=== PATIENT | male | born 1980 | race Caucasian/White ===

== ENCOUNTER 2017-01-27 10:15 | Emergency (ER) | payer BC, OTHER, SELFPAY ==
[2017-01-27] MEDS ORDERED: HYDROcodone/Acetaminophen 5/325 mg Tablet ONE (10:54)
== END 2017-01-27 11:07 | disposition home or self-care (01) ==
LOC: BURERS 10:15
DX: M54.12 Radiculopathy, cervical region (principal); I10 Essential (primary) hypertension; F41.9 Anxiety disorder, unspecified; F32.9 Major depressive disorder, single episode, unspecified

== ENCOUNTER 2017-07-15 11:24 | Outpatient (CLI) | payer OTHER ==
--- NOTE | 2017-07-15 19:13 | RAD ---
RIGHT HAND TWO VIEWS: 07/15/2017 FINDINGS: Old trauma and post surgical changes are noted to the distal phalanx of the fifth digit at the DIP gonzalez int. There is a chronic flexion deformity and rotation of the distal phalanx with respect to the mid dle. This is longstanding. With respect to the thumb, there is a tiny becca of bone just lateral to the first MCP joint and a small divot at the lateral aspect of the first metacarpal head. These fin dings appear more like an old injury than new. The remainder of the hand and wrist appear intact. IMPRESSION: Probable old injury to the radial aspect of the first metacarpal head. POS: HOME
== END 2017-07-15 11:25 | disposition home or self-care (01) ==
LOC: BURRAD 11:24
PROVIDERS: ATTEND Family Medicine
DX: M79.644 Pain in right finger(s) (principal)

== ENCOUNTER 2018-02-10 11:01 | Emergency (ER) | payer SELFPAY, OTHER ==
[2018-02-10] MEDS ORDERED: traMADol HCl 50 MG TAB ONE (11:54)
[2018-02-10] MEDS ORDERED: Ibuprofen 800 MG TAB ONE (11:55)
--- NOTE | 2018-02-10 14:51 | CT ---
CT BRAIN WITHOUT CONTRAST: 02/10/2018 FINDINGS: A noncontrast CT shows normal sized ventricles with no shift. No intracranial bleeding or extraaxial hematoma is seen. There is no sign of mass, edema, or stroke. The skull appears intact. The sphen oid sinus and mastoid air cells are clear. An incidental finding is a 2 cm, ossified mass arising from the outer table of the left occipital bon e. In retrospect, it was present in 2007; however, it is much more ossified today. It is well defin ed, it does not transgress the inner table, and it has no worrisome periosteal reaction. It appears to be a nonaggressive lesion of unknown etiology. IMPRESSION: 1. No acute intracranial findings. 2. 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 Radiographically, it has a nonaggressive appearance. POS: HOME
--- NOTE | 2018-02-10 14:51 | CT ---
CT OF THE THORACIC SPINE: DATE: 02/10/2018. FINDINGS: Spiral CT of the thoracic spine was performed for evaluation following trauma. Axial slices were acq uired, then coronal and sagittal reconstructions were done. The exam was done without any contrast. No fracture, dislocation, or acute bony change was seen on these images. The disk spaces appear norm al. There was no significant degree of stenosis seen in the spine. Some dependent atelectasis was s een in the adjacent lungs. There is no sign of pneumothorax or effusion in the area scanned. IMPRESSION: No significant thoracic finding. POS: HOME
== END 2018-02-10 12:10 | disposition home or self-care (01) ==
LOC: BURERS 11:01
DX: T70.0XXA Otitic barotrauma, initial encounter (principal); M54.6 Pain in thoracic spine; W40.8XXA Explosion of other specified explosive materials, initial encounter; Y92.69 Other specified industrial and construction area as the place of occurrence of the external cause; Y99.0 Civilian activity done for income or pay
CPT/HCPCS: 70450; 72128

== ENCOUNTER 2022-10-03 18:02 | Emergency (ER) | payer OTHER, SELFPAY | END 2022-10-03 19:17 | disposition home or self-care (01) | LOC: BURERS 18:02 | DX: S83.91XA Sprain of unspecified site of right knee, initial encounter (principal); I10 Essential (primary) hypertension; X50.9XXA Other and unspecified overexertion or strenuous movements or postures, initial encounter ==